=== PATIENT | female | born 1965 | race Caucasian/White ===

== ENCOUNTER 2019-08-23 12:19 | Outpatient (CLI) | payer BC, SELFPAY ==
--- NOTE | ~2019-08-23 | XR_ITS ---
EXAMINATION: XR chest 2V EXAM DATE: 08/23/2019 13:07 INDICATION: Chest pain. TECHNIQUE: Frontal and lateral projections of the chest obtained and reviewed. There is no prior ana dy for comparison. FINDINGS: The lungs are clear. There are no pleural effusions. The cardiomediastinal silhouette is within normal limits. There is no pneumothorax suspected. The bones and soft tissues are unremarkab le. IMPRESSION: Normal chest x-ray exam. Reviewed, dictated and finalized at location A. IMPRESSION: Normal chest x-ray exam.
== END 2019-08-23 12:20 | disposition home or self-care (01) ==
LOC: ANHIMG 12:27
PROVIDERS: PCP Family Medicine; Visit Provider Physician Assistant Medical
DX: R07.9 Chest pain, unspecified (principal)
CPT/HCPCS: 71046

== ENCOUNTER 2019-11-11 12:57 | Outpatient (CLI) | payer BC, SELFPAY ==
--- NOTE | ~2019-11-11 | MMUS_ITS ---
EXAMINATION: MM diagnostic [place] BI w adilia, US breast BI complete HISTORY: Left breast lump TECHNIQUE: ML, MLO and cc 3-D tomosynthesis images of both breasts were performed and synthetic 2-D i mages were generated. CAD analysis was submitted and interpreted. High resolution complete bilateral breast ultrasound was performed. COMPARISON: 07/24/2016 bilateral digital screening mammogram 07/29/2016 bilateral complete breast ultrasound BREAST PARENCHYMAL COMPOSITION: The breasts are extremely dense, which lowers the sensitivity of mamm ography. FINDINGS: MAMMOGRAPHIC FINDINGS: Multiple bilateral circumscribed breast masses of variable size are noted, some with halo sign, consi stent with bilateral breast cysts. Multiple masses and the dense stroma may obscure a significant mas s. For this reason, bilateral breast ultrasound examination was performed. Minimal benign calcification. No architectural distortion, skin thickening or retraction of either br east is evident. ULTRASOUND: Sonographic evaluation of both complete breasts reveal numerous scattered simple and complicated cyst s, with circumscribed margins, no suspicious internal vascularity or posterior shadowing. The larges t measure up to 2.6 cm on the left at 12:00 5 cm from nipple. No suspicious mass or shadowing of either breast is evident. IMPRESSION: 1. Multiple bilateral breast cysts. No mammographic or sonographic evidence of malignancy 2. Routine mammographic screening follow-up is recommended. BI-RADS Category 2: Benign finding(s). Reviewed, dictated and finalized at location A. IMPRESSION: 1. Multiple bilateral breast cysts. No mammographic or sonographic evidence of malignancy 2. Routine mammographic screening follow-up is recommended. BI-RADS Category 2: Benign finding(s).
== END 2019-11-11 12:58 | disposition home or self-care (01) ==
LOC: ANHIMG 12:58
PROVIDERS: PCP Family Medicine; Visit Provider Nurse Practitioner Family
DX: N60.02 Solitary cyst of left breast (principal); N60.01 Solitary cyst of right breast
CPT/HCPCS: 76641; 77062; 77066; G0279

== ENCOUNTER 2020-02-15 12:44 | Outpatient (CLI) | payer BC, SELFPAY ==
[2020-02-15 19:20] LABS: SARS-CoV-2 RNA PCR Negative
== END 2020-02-15 12:45 | disposition home or self-care (01) ==
LOC: ANHCOVIDDT 03-02 12:44
PROVIDERS: PCP Family Medicine; Visit Provider Internal Medicine Gastroenterology
DX: Z01.812 Encounter for preprocedural laboratory examination (principal); Z11.59 Encounter for screening for other viral diseases
CPT/HCPCS: 87635; C9803; U0003

== ENCOUNTER 2020-02-17 02:16 | Day surgery (SDC) | payer BC, SELFPAY ==
[2020-02-08 13:54] VITALS: BMI 25.0
--- NOTE | 2020-02-17 11:18 | WPDANESEPPF ---
Anes - Initial Pre Proc Eval Procedure: Operation Date: 02/17/20 13:15 Proposed Procedures p Screening Colonoscopy - Víctor Phillips MD Date/Time: 02/17/20 11:18 Surgeon: Víctor Phillips MD Pre Op Diagnosis: Neoplasm Screening Patient Data Age: 54 Gender: F Height: 1.63 m Weight: 66 kg Allergies Allergy/AdvReac Type Severity Reaction Status Date / Time propoxyphene Allergy Severe Unknown Verified 02/17/20 12:06 Penicillins Allergy Intermediate Unknown Verified 02/17/20 12:06 Home Medications Medication Instructions Recorded Confirmed Type meloxicam 15 mg tablet 15 mg PO DAILY #30 tablet 12/12/19 02/17/20 Rx escitalopram oxalate 10 mg tablet 10 mg PO DAILY #30 tablet 12/26/19 02/17/20 Rx peg 3350-electrolytes 236 240 ml PO Q10M #4000 ml 02/03/20 Rx gram-22.74 gram-6.74 gram-5.86 gram solution Daily Multi-Vitamin 1 tab-cap PO DAILY 02/08/20 02/17/20 History Neuriva 1 cap PO DAILY 02/08/20 02/17/20 History famotidine 40 mg tablet 40 mg PO DAILY #30 tablet 02/08/20 02/17/20 Rx ferrous sulfate 324 mg PO DAILY 02/08/20 02/17/20 History Patient hx anesthesia problems: none Family hx anesthesia problems: none PMFSH Social History Social History Smoking packs per day: 1 Smoking cigarettes per day: 20.0 Years smoked: 20 Smoking pack-years: 20.00 Smoking status: Former smoker Tobacco type: cigarettes Second hand tobacco smoke exposure: No Alcohol intake: current Drinks per week: 24 Substance use: current Substance use type: marijuana Other substance usage details: DAILY Living arrangements: with family Spiritual care concerns: No Anes - Eval Final PreProcedure Day of Procedure 02/17/20 11:18 Patient weight: normal Heart: regular rate and rhythm Lungs: clear to auscultation and normal air movement Airway: Mallampati scale class II Neurological: alert and oriented Last oral intake: >/= 8 hours ASA classification: II Emergent: no Anesthetic plan: proceed Anesthesia type and monitoring: general GIVS Informed Consent: The patient's anesthetic plan and its attendant risks and benefits were discussed with the patient/family/POA. Questions were solicited and answers provided to the satisfaction of the patient/family/POA.
[2020-02-17] MEDS: LACTATED RINGERS 1,000 ML 150 ML IV CONT (12:20)
[2020-02-17 12:21] VITALS: BP 141/100; PULSE 78; RESP 20; TEMP 36.6; O2SAT 100; BMI 24.7
--- NOTE | 2020-02-17 13:18 | PM.HPGS ---
History of Present Illness History of Present Illness Consent: Risks, benefits, and alternatives have been discussed and questions answered. Patient agrees to proceed with procedure. Chief complaint: Neoplasm Screening Narrative: Francheska Childers is a 54 year old female here for first screening colonoscopy Review of Systems Constitutional: Constitutional: Denies headache(s) and Denies weakness Eyes: Eyes: Denies blurry vision ENT: Reports Normal hearing present, Denies headache(s) and Denies neck pain Cardiovascular: Cardiovascular: Denies chest pain and Denies dyspnea Respiratory: Respiratory: Denies dyspnea Gastrointestinal: Gastrointestinal: Reports no additional gastrointestinal complaints Genitourinary: Genitourinary: Denies dysuria Musculoskeletal: Musculoskeletal: Denies neck pain Integumentary/Breasts: Skin/Breast: Denies dry skin Neurologic: Reports Normal hearing present, Denies headache(s) and Denies weakness Psychiatric: Psychiatric: Denies anxiety Endocrine: Endocrine: Denies change in body appearance Hematologic/Lymphatic: Hematologic/Lymphatic: Denies easy bleeding Allergic/Immunologic: Allergic/Immunologic: Denies urticaria [facility] Social History Social History Smoking packs per day: 1 Smoking cigarettes per day: 20.0 Years smoked: 20 Smoking pack-years: 20.00 Smoking status: Former smoker Tobacco type: cigarettes Second hand tobacco smoke exposure: No Alcohol intake: current Drinks per week: 24 Substance use: current Substance use type: marijuana Other substance usage details: DAILY Living arrangements: with family Spiritual care concerns: No Meds Home Medications and Allergies Home Medications Medication Instructions Recorded Confirmed Type meloxicam 15 mg tablet 15 mg PO DAILY #30 tablet 12/12/19 02/17/20 Rx escitalopram oxalate 10 mg tablet 10 mg PO DAILY #30 tablet 12/26/19 02/17/20 Rx peg 3350-electrolytes 236 240 ml PO Q10M #4000 ml 02/03/20 Rx gram-22.74 gram-6.74 gram-5.86 gram solution Daily Multi-Vitamin 1 tab-cap PO DAILY 02/08/20 02/17/20 History Neuriva 1 cap PO DAILY 02/08/20 02/17/20 History famotidine 40 mg tablet 40 mg PO DAILY #30 tablet 02/08/20 02/17/20 Rx ferrous sulfate 324 mg PO DAILY 02/08/20 02/17/20 History Allergies Allergy/AdvReac Type Severity Reaction Status Date / Time propoxyphene Allergy Severe Unknown Verified 02/17/20 12:06 Penicillins Allergy Intermediate Unknown Verified 02/17/20 12:06 Vital Signs Vital Signs - 24 hr 02/17/20 12:21 Temperature 97.8 F Pulse Rate 78 Respiratory Rate 20 Blood Pressure 141/100 H Pulse Oximetry 100 Exam Const: General: comfortable and no acute distress HENMT: General nose exam: Normal nares present Eyes: General: appearance normal, both eyes and all related structures Neck: Neck: no JVD Resp: Auscultation: clear to auscultation bilaterally Cardio: Rate: regular rate Rhythm: regular rhythm GI: Inspection: non-distended GI Palp: Yes Soft to palpation Skin: General skin exam: normal color Neuro: General: gait normal Speech: normal speech Extrem: General: normal to inspection Psych: Mental Status: mental status grossly normal Assessment and Plan Assessment and plan (1) Colon cancer screening: Code(s): Z12.11 - Encounter for screening for malignant neoplasm of colon Status: Acute Assessment and Plan: proceed with colonoscopy (2) GERD (gastroesophageal reflux disease): Qualifiers: Esophagitis presence: esophagitis presence not specified Qualified Code(s): K21.9 - Gastro-esophageal reflux disease without esophagitis Code(s): K21.9 - Gastro-esophageal reflux disease without esophagitis Status: Acute
[2020-02-17 13:36] VITALS: BP 143/68; PULSE 74; RESP 18; O2SAT 100
[2020-02-17 13:46] VITALS: BP 134/69; PULSE 60; RESP 18; O2SAT 100
[2020-02-17 13:56] VITALS: BP 139/80; PULSE 78; RESP 20; O2SAT 100
== END 2020-02-17 14:06 | disposition home or self-care (01) ==
PROVIDERS: PCP Family Medicine; Visit Provider Internal Medicine Gastroenterology
PROC: 0DJD8ZZ Inspection of Lower Intestinal Tract, Via Natural or Artificial Opening Endoscopic (ICD-10-PCS; CPT 45378; principal; 2020-02-17 13:15)
DX: Z12.11 Encounter for screening for malignant neoplasm of colon (principal); K57.30 Diverticulosis of large intestine without perforation or abscess without bleeding; K64.8 Other hemorrhoids; K21.9 Gastro-esophageal reflux disease without esophagitis; F12.90 Cannabis use, unspecified, uncomplicated; Z87.891 Personal history of nicotine dependence
CPT/HCPCS: 45378; J2704; J7120

== ENCOUNTER 2020-04-04 13:24 | Outpatient (CLI) | payer BC, SELFPAY ==
--- NOTE | ~2020-04-04 | MR_ITS ---
EXAMINATION: MR brain/brain stem wo/w con DATE: 04/04/2020 14:37 INDICATION: Headache. Abnormal gait. TECHNIQUE: Magnetic resonance imaging (MRI) of the brain and brainstem was performed without and with 12 mL MultiHance intravenous contrast. Sequences included sagittal and axial T1-weighted FSE, axial diffusion-weighted FS EPI, axial T2*-weighted GRE, axial T2-weighted FLAIR Propeller, and axial T2-we ighted Propeller. Postcontrast sequences included axial and coronal T1-weighted FSE. Apparent diffusi on coefficient (ADC) maps were created. COMPARISON: None. FINDINGS: There are scattered areas of nonspecific increased T2-weighted signal intensity in the cere bral white matter, which is within normal limits for the patient's age. There is no intracranial hemo rrhage, acute infarction, or abnormal intracranial mass lesion. The ventricles are normal in size. Th e paranasal sinuses are clear. The orbits are normal. The mastoid air cells are normal. IMPRESSION: 1. Normal aging brain. Reviewed, dictated and finalized at location A. IMPRESSION: 1. Normal aging brain.
== END 2020-04-04 13:25 | disposition home or self-care (01) ==
PROVIDERS: PCP Family Medicine; Visit Provider Nurse Practitioner Family
DX: R26.89 Other abnormalities of gait and mobility (principal); R41.3 Other amnesia; R51.9 Headache, unspecified
CPT/HCPCS: 70553; A9577

== ENCOUNTER 2020-05-28 09:37 | Outpatient (NON) | payer BC, SELFPAY ==
[2020-05-28 22:01] LABS: SARS-CoV-2 RNA PCR Positive
== END 2020-05-28 09:38 ==
LOC: ANHCOVIDDT 09:38
PROVIDERS: PCP Family Medicine; Visit Provider Nurse Practitioner Family
DX: U07.1 COVID-19 (principal)
CPT/HCPCS: 87635; C9803; U0003

== ENCOUNTER 2020-11-26 09:24 | Emergency (ER) | payer BC, SELFPAY ==
--- NOTE | ~2020-11-26 | XR_ITS ---
EXAMINATION: XR chest 2V DATE: 11/26/2020 10:24 INDICATION: Shortness of breath and dizziness TECHNIQUE: Frontal and lateral views of the chest are obtained COMPARISON: 08/23/2019 FINDINGS: The lungs are free of acute opacities. There is no pleural effusion or pneumothorax. The ca rdiomediastinal silhouette is normal. There is mild thoracic spondylosis. IMPRESSION: 1. No acute cardiopulmonary abnormality. Reviewed, dictated and finalized at location A.
--- NOTE | 2020-11-26 09:50 | ECG_ITS ---
Measurements Intervals [place] Rate: 71 P: 29 UT: 143 QRS: 52 QRSD: 82 T: 43 QT: 370 QTc: 403 Interpretive Statements SINUS RHYTHM WITH SINUS ARRHYTHMIA BASELINE ARTIFACT- I, II, III, AVR, AVL, AVF NORMAL ECG Electronically Signed On 11-26-2020 10:06:56 CDT by Quang Shepard D.O.
[2020-11-26 09:52] VITALS: BP 170/82; PULSE 79; RESP 18; TEMP 36.4; O2SAT 99
[2020-11-26 10:13] LABS: Basophils Absolute Auto 0.1 K/mm3 (0.0-0.1); Basophils Percent Auto 0.7 % (0.2-1.2); Eosinophils Absolute Auto 0.1 K/mm3 (0-0.3); Eosinophils Percent Auto 1.2 % (0-4.4); Hemoglobin 14.8 g/dL (12.0-15.0); Immature Granulocyte Absolute 0.03 K/mm3 (0.00-0.031); Immature Granulocyte Percent A 0.3 % (0-0.5); Lymphocytes Absolute Auto 1.89 K/mm3 (0.9-3.2); Lymphocytes Percent Auto 19.7 % (18.3-44.2); Mean Corpuscular HGB Conc 33.6 g/dl (32-36); Mean Corpuscular Hemoglobin 32.2 pg (26-34); Mean Corpuscular Volume 95.7 fl (80-100); Mean Platelet Volume 9.2 fl (7.4-10.4); Monocytes Absolute Auto 0.7 K/mm3 (0.1-0.6); Neutrophils Absolute Auto 6.8 K/mm3 (1.3-6.7); Neutrophils Percent Auto 71.1 % (45.5-73.1); Platelet Count Result 239 k/mm3 (150-375); Red Cell Distribution Width 12.1 % (11.5-14.5); White Blood Count 9.6 K/mm3 (4.5-10.0)
[2020-11-26 10:23] LABS: Alanine Aminotransferase 15 U/L (4-35); Albumin Level 4.5 g/dL (3.5-5.1); Alkaline Phosphatase 51 U/L (38-126); Anion Gap 7 mmol/L (8-16); Aspartate Amino Transferase 24 U/L (14-36); Bilirubin,Total 0.5 mg/dL (0.2-1.3); Blood Urea Nitrogen 11 mg/dL (7-17); Calcium 9.7 mg/dL (8.4-10.2); Carbon Dioxide 28 mmol/L (22-30); Chloride 104 mmol/L (98-107); Estimated CRCL calculation 80 ml/min; Estimated Glomerular Filt Rate > 60; Glucose 110 mg/dL (65-105); Potassium 3.8 mmol/L (3.4-5.0); Sodium 139 mmol/L (137-145)
[2020-11-26 11:02] VITALS: BP 152/104; PULSE 76; RESP 11; O2SAT 99
--- NOTE | 2020-11-26 11:25 | ED.DIZZY ---
HPI - Dizziness General Chief Complaint: Dizziness Stated Complaint: dizziness and shortness of breath Time Seen by Provider: 11/26/20 11:11 History of Present Illness HPI Narrative: She reports dizziness for a month. Worse over the past 24 hours. Feels like spinning. Associated with mild nausea. She reports that she has had vertigo before, but this is different. No tinitus, ear pain, chest pain, palpitations. Related Data Home Medications Medication Instructions Recorded Confirmed Daily Multi-Vitamin 1 tab-cap PO DAILY 02/08/20 10/23/20 Neuriva 1 cap PO DAILY 02/08/20 10/23/20 Allergies Allergy/AdvReac Type Severity Reaction Status Date / Time propoxyphene Allergy Severe Unknown Verified 11/26/20 10:58 Penicillins Allergy Intermediate Unknown Verified 11/26/20 10:58 Review of Systems Review of Systems: All systems reviewed & are unremarkable except as noted in HPI and below Constitutional: Constitutional: Denies chills, Denies fever(s) and Reports weakness Eyes: Eyes: Reports no additional eye complaints ENT: Reports dizziness Cardiovascular: Cardiovascular: Denies chest pain Respiratory: Respiratory: Denies dyspnea Gastrointestinal: Gastrointestinal: Denies abdominal pain, Reports nausea and Denies vomiting Genitourinary: Genitourinary: Reports no additional female genitourinary complaints Musculoskeletal: Musculoskeletal: Denies back pain Neurologic: Denies confusion, Denies numbness and Denies weakness [facility] Past Medical History Medical History Anxiety and depression BMI 23.0-23.9, adult BMI 24.0-24.9, adult Colon cancer screening GERD (gastroesophageal reflux disease) Lumbago of lumbar region with sciatica Family History Family History Grandparent Hypertension Father Acute myocardial infarction Cerebrovascular accident Mother No problems noted. Sibling No problems noted. 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 Gender identity (if verbalized by the patient): Female Spiritual care concerns: No Exam Const: General: healthy appearing, no acute distress and alert Orientation/consciousness: patient oriented x3 HENMT: Head: normal to inspection Ears: TM's normal bilaterally Eyes: Conjunctivae: conjunctivae normal Pupils: Equal, round and reactive pupils present EOM: EOMs intact bilaterally Neck: Neck: normal visual inspection and no lymphadenopathy Chest: Chest palpation & inspection: no tenderness Resp: Effort & Inspection: normal respiratory effort Auscultation: clear to auscultation bilaterally, no rales, no rhonchi and no wheezes Cardio: Jugular venous distension: no JVD Rate: regular rate Rhythm: regular rhythm Heart sounds: no murmurs GI: Inspection: non-distended GI Palp: Yes Soft to palpation and No Tenderness to palpation present (GI) Skin: General skin exam: normal color Neuro: General: patient oriented x3, moves all extremities and CN's II-XI intact bilaterally Cranial nerves: Yes Nystagmus present (minimal) Speech: normal speech Gait exam (Neuro): Normal gait present Extrem: General: no edema Psych: Appearance: well kempt Affect: normal affect Course Vital Signs Vital signs: Vital Signs Temperature 36.4 C 11/26/20 09:52 Pulse Rate 79 11/26/20 09:52 Respiratory Rate 18 11/26/20 09:52 Blood Pressure 170/82 H 11/07
[2020-11-26] MEDS: MECLIZINE HCL 25 MG TABLET PO (11:36)
[2020-11-26] MEDS: SODIUM CHLORIDE 0.9% IV 1,000 ML 999 ML IV CONT (11:37)
[2020-11-26] MEDS: ALBUTEROL SULFATE NEB 2.5 MG/0.5 ML INH 5 MG INHALATION (11:38)
[2020-11-26 11:40] VITALS: PULSE 77; RESP 20
[2020-11-26 11:48] VITALS: PULSE 77; RESP 20
[2020-11-26 12:43] VITALS: BP 167/86; PULSE 86; RESP 27; O2SAT 100
[2020-11-26 13:11] VITALS: BP 113/94; PULSE 86; RESP 17; O2SAT 99
== END 2020-11-26 13:14 | disposition home or self-care (01) ==
PROVIDERS: Emergency Provider Emergency Medicine; PCP Family Medicine
DX: R42 Dizziness and giddiness (principal); R06.2 Wheezing; K21.9 Gastro-esophageal reflux disease without esophagitis; Z87.891 Personal history of nicotine dependence
CPT/HCPCS: 36415; 71046; 80053; 85025; 93005; 94640; 96360; 99283; A9270; J7030

== ENCOUNTER 2020-12-18 15:32 | Outpatient (CLI) | payer BC, SELFPAY ==
--- NOTE | ~2020-12-18 | MM_ITS ---
EXAMINATION: MM screening [place] BI w adilia HISTORY: Screening mammogram TECHNIQUE: Craniocaudal and mediolateral oblique 3-D tomosynthesis images were obtained and synthetic 2-D images were generated. CAD analysis was submitted and interpreted. COMPARISON: 11/11/2019, 07/24/2016 BREAST PARENCHYMAL COMPOSITION: The breasts are extremely dense, which lowers the sensitivity of mamm ography. FINDINGS: Obscured, waxing and waning bilateral breast masses are consistent with cysts. There is no evidence of suspicious mass, calcification, or architectural distortion to suggest malignancy in eith er breast. There has been no suspicious interval change. IMPRESSION: 1. No mammographic evidence of malignancy. 2. Recommend routine screening mammography in one year. BI-RADS Category 2: Benign finding(s). Reviewed, dictated and finalized at location A.
== END 2020-12-18 15:33 | disposition home or self-care (01) ==
LOC: ANHIMG 15:33
PROVIDERS: PCP Family Medicine; Visit Provider Nurse Practitioner Family
DX: Z12.31 Encounter for screening mammogram for malignant neoplasm of breast (principal)
CPT/HCPCS: 77063; 77067

== ENCOUNTER 2021-12-06 08:41 | Emergency (ER) | payer OTHER, SELFPAY ==
--- NOTE | ~2021-12-06 | CT_ITS ---
EXAMINATION: CT cervical spine wo con DATE: 12/06/2021 09:31 INDICATION: Neck pain TECHNIQUE: Computed tomography (CT) of the cervical spine was performed without intravenous contrast. The dose-length product was 233 mGy-cm. Automated exposure control and iterative reconstruction tech nique were employed. COMPARISON: None FINDINGS: There is straightening of cervical lordosis. There is degenerative disc disease at C5-6 wit h prominent marginal osteophytes. Craniovertebral junction within normal limits. Odontoid process is normal. There are uncinate degenerative changes at C5-6. Lung apices are normal. There is emphysema. No paraspinal soft tissue abnormality. IMPRESSION: 1. No acute fracture. Reviewed, dictated and finalized at location A. IMPRESSION: 1. No acute fracture.
--- NOTE | ~2021-12-06 | CT_ITS ---
EXAMINATION: CT brain wo con DATE: 12/06/2021 09:31 INDICATION: Status post fall. Trauma to the back of the head. Laceration. TECHNIQUE: Computed tomography (CT) of the head was performed without intravenous contrast. The dose- length product was 605.33 mGy-cm. Automated exposure control and iterative reconstruction technique w ere employed. COMPARISON: None FINDINGS: No acute intracranial hemorrhage, infarction, mass or mass effect. No ventriculomegaly or m idline shift. Basilar cisterns are patent. Paranasal sinuses and mastoids are pneumatized. No depress ed skull fractures. Mild generalized brain parenchymal volume loss. Midline sagittal images are unrem arkable. IMPRESSION: 1. No acute intracranial abnormality. Reviewed, dictated and finalized at location A.
[2021-12-06 08:45] VITALS: BP 193/110; PULSE 95; RESP 20; TEMP 37.6; O2SAT 98
--- NOTE | 2021-12-06 08:49 | ECG_ITS ---
Measurements Intervals [place] Rate: 91 P: 21 MS: 142 QRS: 25 QRSD: 81 T: 39 QT: 356 QTc: 438 Interpretive Statements SINUS RHYTHM BORDERLINE R WAVE PROGRESSION, ANTERIOR LEADS BASELINE WANDER- II, III, AVR, AVL, AVF, V3 BORDERLINE ECG Electronically Signed On 12-06-2021 9:05:42 CDT by Quang Shepard D.O.
--- NOTE | 2021-12-06 09:20 | ED.FALL ---
HPI - Fall General Chief Complaint: Fall Stated Complaint: fall, hit head Time Seen by Provider: 12/06/21 09:14 History of Present Illness HPI Narrative: 56-year-old female presents to the emergency room for evaluation of a head injury. Patient states last night she lost her footing and fell down 7 stairs. Reports suffering a head injury, with laceration to back of her head. Patient denies LOC or altered mental status. Morning when she woke up she became dizzy and nauseated. States her significant other placed liquid glue over the laceration to stop the bleeding. Patient denies any other injuries Related Data Home Medications Medication Instructions Recorded Confirmed Saccharomyces boulardii 250 mg 5,000 mmu cells PO DAILY 12/02/21 capsule (Daily Probiotic (S. boulardii)) multivitamin 1 tablet PO DAILY 12/02/21 Allergies Allergy/AdvReac Type Severity Reaction Status Date / Time propoxyphene Allergy Severe Unknown Verified 12/02/21 12:42 Penicillins Allergy Intermediate Unknown Verified 12/02/21 12:42 Review of Systems Review of Systems: CONSTITUTIONAL: Denies fever, chills, or sweats. EYES: Denies visual changes, redness, or discharge. ENT: Denies rhinorrhea, congestion, sore throat, or otalgia. CARDIOVASCULAR: Denies chest pain, palpitations, or edema. RESPIRATORY: Denies cough or dyspnea. GASTROINTESTINAL: Reports nausea GENITOURINARY: Denies dysuria or hematuria. SKIN: Reports scalp laceration MUSCULOSKELETAL: Denies back pain, joint pain, or myalgia. NEUROLOGIC: Reports headache, dizziness PSYCHIATRIC: Denies anxiety or depression. [facility] Past Medical History Medical History Anxiety and depression BMI 23.0-23.9, adult BMI 24.0-24.9, adult BPV (benign positional vertigo) Colon cancer screening GERD (gastroesophageal reflux disease) Lumbago of lumbar region with sciatica Mixed hyperlipidemia Family History Family History Grandparent Hypertension Father Acute myocardial infarction Cerebrovascular accident Mother No problems noted. Sibling No problems noted. 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 HEAD: Normocephalic, atraumatic. EYES: Conjunctivae normal, PERRLA and EOMI. CHEST: Clear to auscultation. No respiratory distress. No wheezes rales or rhonchi. No tenderness. HEART: Regular rate and rhythm. No murmur heard. Normal peripheral pulses. BACK: No CVA tenderness; No cervical/thoracic/lumbar tenderness, step-offs, or bony abnormality; FROM EXTREMITIES: Normal range of motion. No edema. No clubbing or cyanosis SKIN: Laceration to the left posterior lateral laceration with overlying skin adhesive. Unable to open up the laceration NEURO: No focal deficits. Alert and oriented x3. MAEW. CN's II-XI intact bilaterally, normal gait PSYCH: Cooperative. Normal mood and affect. Course Vital Signs Vital signs: Vital Signs Temperature 37.6 C H 12/06/21 08:45 Pulse Rate 95 12/06/21 08:45 Respiratory Rate 20 12/06/21 08:45 Blood Pressure 193/110 H 12/06/21 08:45 Pulse Oximetry 98 12/06/21 08:45 Oxygen Delivery Room A
[2021-12-06] MEDS: ONDANSETRON INJ 4 MG/2 ML VIAL IV PUSH (09:21)
--- NOTE | 2021-12-06 09:24 | PC.NURSE ---
Patient to CT
[2021-12-06 10:48] VITALS: BP 128/110; PULSE 83; RESP 18; TEMP 36.8; O2SAT 98
== END 2021-12-06 10:54 | disposition home or self-care (01) ==
PROVIDERS: Emergency Provider Nurse Practitioner Family; PCP Family Medicine
DX: S09.90XA Unspecified injury of head, initial encounter (principal); R11.0 Nausea; E78.2 Mixed hyperlipidemia; Z87.891 Personal history of nicotine dependence; W10.9XXA Fall (on) (from) unspecified stairs and steps, initial encounter
CPT/HCPCS: 70450; 72125; 93005; 96374; 99284; J2405

== ENCOUNTER 2022-02-17 08:48 | Outpatient (CLI) | payer OTHER, SELFPAY ==
--- NOTE | ~2022-02-17 | MM_ITS ---
EXAMINATION: MM screening [place] BI w adilia HISTORY: Screening mammogram TECHNIQUE: Craniocaudal and mediolateral oblique 3-D tomosynthesis images were obtained and synthetic 2-D images were generated. Bilateral rotated lateral CC views. CAD analysis was submitted and interp reted. COMPARISON: 12/18/2020 bilateral screening mammogram 11/11/2019 bilateral diagnostic mammography and bilateral complete breast ultrasound 08/15/2016 Limited right breast ultrasound 07/29/2016 bilateral complete breast ultrasound bilateral screening mammogram BREAST PARENCHYMAL COMPOSITION: The breasts are extremely dense, which lowers the sensitivity of mamm ography. FINDINGS: There is waxing and waning of bilateral circumscribed opacities since , consisten t with fibrocystic breasts. Multiple up to 2.5 and 4.2 cm circumscribed opacities with halo sign, con sistent with benign cysts, are noted in the left breast. There is no evidence of suspicious mass, calcification, or architectural distortion to suggest malig natasha in either breast. There has been no suspicious interval change. IMPRESSION: 1. No mammographic evidence of malignancy. 2. Recommend routine screening mammography in one year. BI-RADS Category 2: Benign finding(s). Reviewed, dictated and finalized at location A.
== END 2022-02-17 08:49 | disposition home or self-care (01) ==
PROVIDERS: PCP Family Medicine; Visit Provider Obstetrics & Gynecology
DX: Z12.31 Encounter for screening mammogram for malignant neoplasm of breast (principal)
CPT/HCPCS: 77063; 77067

== ENCOUNTER 2022-02-18 09:54 | Outpatient (CLI) | payer OTHER, SELFPAY ==
--- NOTE | 2022-02-18 10:16 | ECG_ITS ---
Measurements Intervals [place] Rate: 80 P: 69 TX: 149 QRS: 49 QRSD: 83 T: 40 QT: 366 QTc: 423 Interpretive Statements SINUS RHYTHM BASELINE ARTIFACT- I, III, AVR, AVL, AVF NORMAL ECG COMPARED TO ECG 12/06/2021 08:53:06 NO SIGNIFICANT CHANGES Electronically Signed On 02-18-2022 12:06:20 CDT by Quang Shepard D.O.
[2022-02-18 10:40] LABS: Basophils Absolute Auto 0.1 K/mm3 (0.0-0.1); Basophils Percent Auto 0.9 % (0.2-1.2); Eosinophils Absolute Auto 0.2 K/mm3 (0-0.3); Eosinophils Percent Auto 2.7 % (0-4.4); Hematocrit 41.4 % (37.0-47.0); Hemoglobin 13.2 g/dL (12.0-15.0); Immature Granulocyte Absolute 0.03 K/mm3 (0.00-0.031); Immature Granulocyte Percent A 0.3 % (0-0.5); Lymphocytes Absolute Auto 1.51 K/mm3 (0.9-3.2); Lymphocytes Percent Auto 16.7 % (18.3-44.2); Mean Corpuscular HGB Conc 31.9 g/dl (32-36); Mean Corpuscular Hemoglobin 29.9 pg (26-34); Mean Corpuscular Volume 93.9 fl (80-100); Mean Platelet Volume 9.6 fl (7.4-10.4); Monocytes Absolute Auto 0.9 K/mm3 (0.1-0.6); Neutrophils Absolute Auto 6.3 K/mm3 (1.3-6.7); Neutrophils Percent Auto 69.4 % (45.5-73.1); Platelet Count Result 263 k/mm3 (150-375); Red Blood Count 4.41 M/mm3 (4.2-5.4); Red Cell Distribution Width 13.5 % (11.5-14.5)
== END 2022-02-18 09:55 | disposition home or self-care (01) ==
PROVIDERS: PCP Family Medicine; Visit Provider Obstetrics & Gynecology
DX: N85.2 Hypertrophy of uterus (principal); Z01.818 Encounter for other preprocedural examination; Z87.891 Personal history of nicotine dependence
CPT/HCPCS: 36415; 85025; 86850; 86900; 86901; 93005

== ENCOUNTER 2022-02-21 00:28 | Day surgery (SDC) | payer OTHER, SELFPAY ==
[2022-02-17 10:53] VITALS: BMI 24.5
--- NOTE | 2022-02-17 11:02 | PC.NURSE ---
Report to the Outpatient Waiting Room, entrance under the green pavilion located off [facility], at time __09:30AM___ on date __02-21-22__. OR Time: ___11:30AM__. Time changes happen often and if your time is changed the preop area will call you the afternoon before. - You and your visitor will be asked to self-screen and do not enter if you have any COVID symptoms. - Only one visitor and NO children visitors are allowed at this time. - The patient visitor is requested to leave or wait in car when not with patient due to restrictions. - A mask is required within the hospital. Patients may have clear liquids (water, carbonated beverages, clear teas, apple juice) until 3 hours prior to surgery with a maximum of 20 ounces. - No food from midnight until time of surgery - NOTHING TO DRINK AFTER 08:30AM Take the following medications with a SIP of water the morning of surgery: ___LEXAPRO____ Medications to discontinue per physician MULTIVITAMIN Date to take last ykvh 3-20-19 Please no make-up, nail malay, hairspray, perfume, deodorant, or body powder the day of surgery. No jewelry (including any body piercings) or valuables the day of surgery, leave them at home. Please take a shower or bath the night before, or the morning of, surgery with an antibacterial soap. Wear comfortable, loose fitting clothing. Children are encouraged to wear pajamas. - Jewelry must be removed prior to entering the operating room. Rings and piercings that are not removed may be cut off. - The hospital will not accept responsibility for valuables. - Please leave all valuables, including medications, at home the day of surgery. If you are going home after surgery, a licensed power screwdriver operator must drive you home. - NO public transportation without another adult. - We recommend that an adult stay with you for 24 hours following discharge. - We also recommend that you do not drive, make important decision, drink alcoholic beverages, or take any drugs that were not prescribed by your health care provider for at least 24 hours after your discharge time. Follow any additional instructions given to you from your surgeon. If you or anyone in your household have experienced Covid symptoms in the past week, please notify your surgeon or the nurse liaison at the phone number below for possible testing. Telephone instructions given to __PATIENT__and asked if any additional questions and then verbalized understanding. Patient advised to call surgeon office or pre surgery nurse liaison [phone] if any additional questions.
--- NOTE | 2022-02-18 12:24 | PM.IMHP ---
H&P: HPI History of Present Illness Date/Time: 02/18/22 12:24 Chief Complaint: Enlarged uterus/pelvic pain/uterine fibroids/heavy bleeding Narrative: This is a 56-year-old female admitted for robotic hysterectomy and bilateral salpingo-oophorectomy secondary to enlarged uterus with fibroids pelvic pain and bleeding refractory to medical therapy. Risks and benefits of the procedure reviewed including but not exclusive of , aspiration pneumonia, bleeding, transfusion, perforation injury to bowel, bladder, ureters, or other internal organs with need for laparotomy. She received the ACOG handout entitled hysterectomy as well as de [place] handout. She had all questions answered and asked to proceed PMFSH Past Medical History Medical History Anxiety and depression BMI 23.0-23.9, adult BMI 24.0-24.9, adult BPV (benign positional vertigo) Colon cancer screening GERD (gastroesophageal reflux disease) Lumbago of lumbar region with sciatica Mixed hyperlipidemia Family History Family History Grandparent Hypertension Father Acute myocardial infarction Cerebrovascular accident Mother No problems noted. Sibling No problems noted. Social History Social History Smoking packs per day: 1 Smoking cigarettes per day: 20.0 Years smoked: 20 Smoking pack-years: 20.00 Smoking status: Former smoker Tobacco type: cigarettes Second hand tobacco smoke exposure: No Smoking end date: 02/06/09 Additional smoking assessment comments: VAPES MARIJUANA Alcohol intake: current Drinks per week: 24 Alcohol use details: DAILY BEER Substance use: current Substance use type: marijuana Other substance usage details: MEDICAL MARIJUANA Last use: 02-16-22 Additional occupation/education comments: spanish teacher Gender identity (if verbalized by the patient): Female Spiritual care concerns: No Meds Home Medications and Allergies Home Medications Medication Instructions Recorded Confirmed Type escitalopram oxalate 5 mg tablet See Rx Instructions .Route 11/25/21 02/17/22 Rx .COMPLEX #90 tabs pantoprazole 20 mg tablet,delayed 20 mg PO QAM #30 tabs 11/25/21 02/17/22 Rx release multivitamin 1 tablet PO DAILY 12/02/21 02/17/22 History estradiol-norethindrone acet 0.5 1 tablet PO DAILY 01/21/22 02/17/22 History mg-0.1 mg tablet ondansetron 4 mg disintegrating 4 mg PO Q8H PRN nausea and 01/21/22 02/17/22 Rx tablet vomiting #30 tabs triamcinolone acetonide 0.1 % 1 applic topical BID #30 grams 01/21/22 02/17/22 Rx topical cream Allergies Allergy/AdvReac Type Severity Reaction Status Date / Time propoxyphene Allergy Severe Unknown Verified 02/17/22 10:46 mold Allergy Intermediate Difficulty Verified 02/17/22 10:47 Breathing Penicillins Allergy Unknown Unknown Verified 02/17/22 10:46 Exam Const: General: cooperative, healthy appearing and comfortable Nutritional Appearance: average body habitus and well nourished Orientation/consciousness: oriented to person, oriented to place and oriented to time Resp: Effort & Inspection: normal respiratory effort Cardio: Rate: regular rate Rhythm: regular rhythm Heart sounds: S1 normal heart sound present and S2 normal heart sound present GI: Inspection: normal to inspection : External Female Exam: normal external appearance Speculum Exam - Vagina: normal appearance of the vagina and vaginal bleeding Speculum Exam - Cervix: normal appearance of the cervix and Cervical os closed Bimanual exam- vagina & uterus: enlarged Bimanual Exam- Adnexa, other: normal adnexae Assessment and Plan Assessment and plan (1) Enlarged uterus: Code(s): N85.2 - Hypertrophy of uterus Status: Acute (2) Pelvic pain: Code(s)
[2022-02-21] VITALS (9 sets, daily range): BP systolic 113–166; BP diastolic 66–116; PULSE 90–114; RESP 16–23; TEMP 36.1–37.2; O2SAT 96–100; BMI 24.5
--- NOTE | 2022-02-21 06:46 | WPDHPUPDATE1 ---
History and Physical Update Update Date/Time: 02/21/22 06:46 History and Physical has been reviewed, including an updated exam of the patient. There are NO changes in the patient's condition. Risks, benefits, and alternatives have been discussed and questions answered. Patient agrees to proceed with procedure.
[2022-02-21] MEDS: LACTATED RINGERS 1,000 ML 30 ML IV CONT ×2 (10:10→13:56)
[2022-02-21] MEDS: ACETAMINOPHEN 500 MG TABLET 1000 MG PO (10:16)
[2022-02-21] MEDS: KETOROLAC 15 MG/ML VIAL (*BKC) IV PUSH (10:16)
--- NOTE | 2022-02-21 10:24 | WPDANESEPPF ---
Anes - Initial Pre Proc Eval Procedure: Operation Date: 02/21/22 11:30 Proposed Procedures p Robotic Assisted Total Vaginal Hysterectomy with Bilateral Salpingo-Oophorectomy - Edwin Cary MD Date/Time: 02/21/22 10:24 Surgeon: Edwin Cary MD Pre Op Diagnosis: Enlarged Uterus, Pelvic Pain,Irg Bleed, Fibroids Patient Data Age: 56 Gender: F Height: 1.63 m Weight: 64.8 kg Allergies Allergy/AdvReac Type Severity Reaction Status Date / Time propoxyphene Allergy Severe Unknown Verified 02/21/22 09:54 mold Allergy Intermediate Difficulty Verified 02/21/22 09:54 Breathing Penicillins Allergy Unknown Unknown Verified 02/21/22 09:54 Home Medications Medication Instructions Recorded Confirmed Type escitalopram oxalate 5 mg tablet See Rx Instructions .Route 11/25/21 02/17/22 Rx .COMPLEX #90 tabs pantoprazole 20 mg tablet,delayed 20 mg PO QAM #30 tabs 11/25/21 02/17/22 Rx release multivitamin 1 tablet PO DAILY 12/02/21 02/21/22 History estradiol-norethindrone acet 0.5 1 tablet PO DAILY 01/21/22 02/17/22 History mg-0.1 mg tablet ondansetron 4 mg disintegrating 4 mg PO Q8H PRN nausea and 01/21/22 02/17/22 Rx tablet vomiting #30 tabs triamcinolone acetonide 0.1 % 1 applic topical BID #30 grams 01/21/22 02/17/22 Rx topical cream hydrocodone 5 mg-acetaminophen 325 1 tablet PO Q4H PRN pain #30 tabs 02/21/22 Rx mg tablet Patient hx anesthesia problems: none Family hx anesthesia problems: none Results Review: All pre-operative results and documents have been reviewed as part of the pre-operative evaluation. [facility] Past Medical History Medical History Anxiety and depression BMI 23.0-23.9, adult BMI 24.0-24.9, adult BPV (benign positional vertigo) Colon cancer screening GERD (gastroesophageal reflux disease) Lumbago of lumbar region with sciatica Mixed hyperlipidemia Surgical History Surgical History (Updated 02/21/22 @ 10:27 by Edwin West MD) History of section Family History Family History Grandparent Hypertension Father Acute myocardial infarction Cerebrovascular accident Mother No problems noted. Sibling No problems noted. Social History Social History Smoking packs per day: 1 Smoking cigarettes per day: 20.0 Years smoked: 20 Smoking pack-years: 20.00 Smoking status: Former smoker Tobacco type: cigarettes Second hand tobacco smoke exposure: No Smoking end date: 02/06/09 Additional smoking assessment comments: VAPES MARIJUANA Alcohol intake: current Drinks per week: 24 Alcohol use details: DAILY BEER Substance use: current Substance use type: marijuana Other substance usage details: MEDICAL MARIJUANA Last use: 02-16-22 Living arrangements: alone Additional occupation/education comments: ed teacher Gender identity (if verbalized by the patient): Female Spiritual care concerns: No Anes - Eval Final PreProcedure Day of Procedure 02/21/22 10:24 Patient weight: normal Heart: regular rate and rhythm Lungs: clear to auscultation Airway: Mallampati scale class II Neurological: alert and oriented Last oral intake: >/= 8 hours ASA classification: III Emergent: no Anesthetic plan: proceed Anesthesia type and monitoring: general ETT and standard monitoring Results Review: All pre-operative results and documents have been reviewed as part of the pre-operative evaluation. Informed Consent: The patient's anesthetic plan and its attendant risks and benefits were discussed with the patient/family/POA. Questions were solicited and answers provided to the satisfaction of the patient/family/POA.
[2022-02-21] MEDS: ceFAZolin 2 GM/D5W 50 ML 2 GM/50 ML BAG IVPB (12:21)
--- NOTE | 2022-02-21 13:40 | P.OP_ITS ---
Procedure Note - Detailed Date of Procedure 02/21/22 Pre-op Diagnosis Enlarged Uterus, Pelvic Pain,Irg Bleed, Fibroids Post-op Diagnosis Same Procedure Performed Robotic total vaginectomy and bilateral salpingo-oophorectomies Surgeon Edwin Cary MD Anesthesia General Indications Is a 56-year-old female with symptomatic uterine fibroids Findings Markedly enlarged fibroid uterus. Tubes status post tubal ligation. Description of Procedure Patient was prepped draped in the normal sterile fashion placed in the dorsal lithotomy position. Under excellent general trach anesthesia weighted speculum placed in posterior fornix vagina. Anterior lip of the cervix grasped with single-tooth tenaculum and the uterus sounded to 12cm. Serial dilatation with fragmented dilators performed followed by passage of the 10. CASEY and the 3. Cold cup. A 16 [place] catheter was placed in the bladder and the bladder drained of clear urine. Weighted speculum was removed the gloves were changed. A supraumbilical incision made the Veress needle passed in the abdomen. Abdomen filled with CO2 gas [id number]. The trocar advanced in the abdomen. Downside visualized no injury seen. Gas reattached the patient placed in Trendelenburg 6. The right left lateral quadrant incisions made and the 8mm trocars advanced under direct visualization assuring no injury. Right upper quadrant incision made the 8mm trocar advanced under direct visualization. The robot was de docked. Attention was turned to the youth counselor. The uterus was large and tortuous. The tubes were status post tubal ligation. The left round ligament was grasped, burned, cut. Anterior bladder flap was formed by sharply dissecting the peritoneum and reflecting the bladder caudally away from the cervix uterus the opposite round ligament which was clamped, burned, cut. Next the left infundibulopelvic structure was skeletonized to remove the ovary and tube. This was clamped, burned, cut and brought to the level of previously cut round ligame nt. Removing the right ovary and tube the infundibulopelvic structure on the right was skeletonized clamped, burned, cut and brought to the level of previously cut round ligament. Next the cardinal broad ligaments on the left were serially skeletonized hugging the cervix and uterus clamping burning cutting down the lateral edge of the uterus and cervix until the vessels could be seen on the left. These were large and tortuous and individually clamped, burned, cut. Next the cardinal broad ligaments on the right were serially skeletonized clamped, burned, cut and brought down the lateral edge of the uterus and cervix until the uterine vessels seen the right. These uterine vessels were then clamped, burned, cut. Blanching the uterus was seen in a colpotomy incision made. Cervix uterus tubes and ovaries removed through the vagina. The vagina closed with continuous running 0V lock from lateral edge to lateral edge. Hemostasis was assured the sprinkled [place] term over the raw surface area. Hemostasis was assured. The robot was undocked. The gas removed from the abdomen. The trocars removed and the incisions closed with 4-0 Monocryl glue. The patient was awakened and went to recovery in satisfactory condition. All sponge, needle, instrument counts were correct. There were no immediate complications Estimated Blood Loss 25 Drains No Packing No Pathology Yes Complications No immediate complications Condition Stable Disposition PACU
[2022-02-21] MEDS: fentaNYL CITRATE INJ (*CRX) 100 MCG/2 ML VIAL 25 MCG IV PUSH ×3 (14:04→14:30)
[2022-02-21] MEDS: diphenhydrAMINE HCl INJ 50 MG/ML VIAL 25 MG IV PUSH (14:18)
[2022-02-21] MEDS: SCOPOLAMINE 1.5 MG PATCH TRANSDERM (14:19)
--- NOTE | 2022-02-21 14:27 | SUR.PHASEI ---
1426: Simple mask removed.
--- NOTE | 2022-02-21 15:02 | SUR.PHASEI ---
Patient stated, I don't think the pain medicine you are giving me is working so I don't want anymore.
--- NOTE | 2022-02-21 15:13 | OBPPTRN ---
Patient transferred to post room #282 via bed. Support person present. Oriented to unit, room, bed in low position, call light within reach.
[2022-02-21] MEDS: KETOROLAC 30 MG/ML VIAL (*BKC) IV PUSH (15:37)
[2022-02-21] MEDS: DEXTROSE 5%/LACTATED RINGERS 1,000 ML 125 ML IV CONT (15:37)
[2022-02-21] MEDS: HYDROcodone/acetaminophen (*CRX) 5-325 MG TABLET 1 TAB PO (18:50)
[2022-02-21] MEDS: SIMETHICONE 80 MG TAB.CHEW PO (19:30)
[2022-02-21] MEDS: IBUPROFEN 600 MG TABLET PO (22:45)
[2022-02-21] MEDS: HYDROcodone/acetaminophen (*CRX) 10-325 MG TABLET 1 TAB PO (22:45)
[2022-02-22 05:00] VITALS: BP 139/89; PULSE 97; RESP 16; TEMP 36.7
[2022-02-22 05:18] LABS: Basophils Absolute Auto 0.1 K/mm3 (0.0-0.1); Basophils Percent Auto 0.4 % (0.2-1.2); Eosinophils Percent Auto 0.2 % (0-4.4); Hematocrit 39.4 % (37.0-47.0); Hemoglobin 12.6 g/dL (12.0-15.0); Immature Granulocyte Absolute 0.05 K/mm3 (0.00-0.031); Immature Granulocyte Percent A 0.4 % (0-0.5); Lymphocytes Absolute Auto 1.59 K/mm3 (0.9-3.2); Lymphocytes Percent Auto 12.7 % (18.3-44.2); Mean Corpuscular Hemoglobin 29.5 pg (26-34); Mean Corpuscular Volume 92.3 fl (80-100); Mean Platelet Volume 9.7 fl (7.4-10.4); Monocytes Absolute Auto 1.2 K/mm3 (0.1-0.6); Monocytes Percent Auto 9.4 % (2.6-8.5); Neutrophils Absolute Auto 9.6 K/mm3 (1.3-6.7); Neutrophils Percent Auto 76.9 % (45.5-73.1); Platelet Count Result 242 k/mm3 (150-375); Red Blood Count 4.27 M/mm3 (4.2-5.4); Red Cell Distribution Width 13.5 % (11.5-14.5); White Blood Count 12.5 K/mm3 (4.5-10.0)
--- NOTE | 2022-02-22 06:53 | P.DS_ITS ---
DS: Admitting Diagnosis Discharge Date 12/22/2021 Admitting Diagnosis enlarged uterus/pelvic pain/ bleeding refractory medical therapy DS: Discharge Diagnosis Discharge Diagnosis (1) Uterine fibroid: Code(s): D25.9 - Leiomyoma of uterus, unspecified Status: Acute (2) Vaginal bleeding: Code(s): N93.9 - Abnormal uterine and vaginal bleeding, unspecified Status: Acute (3) Pelvic pain: Code(s): R10.2 - Pelvic and perineal pain Status: Acute (4) Enlarged uterus: Code(s): N85.2 - Hypertrophy of uterus Status: Acute DS: Summary Hospital Course Reason for hospitalization: patient was admitted for robotic total hysterectomy and bilateral salpingo- oophorectomy. Hospital Course: The patient underwent robotic total vaginal hysterectomy and bilateral salpingo-oophorectomy on 12/21/2021. Her hospital course was unremarkable. She was up, ambulating, voiding without difficulty, eating a regular diet, and generally without complaints. Time Spent with Patient Time attestation: Total time spent providing and/or coordinating discharge services: Exam GI: Inspection: normal to inspection and scar ( wounds were cleaned drain intact) DS: Data Data Completed and Pending Pending studies at discharge: Pending at discharge 02/21/22 13:06 Surgical [PTH] Routine Labs on day of discharge: Labs from last 24 hours 02/22/22 04:56 WBC 12.5 H RBC 4.27 Hgb 12.6 Hct 39.4 MCV 92.3 MCH 29.5 MCHC 32.0 RDW 13.5 Plt Count 242 MPV 9.7 Immature Gran % (Auto) 0.4 Neut % (Auto) 76.9 H Lymph % (Auto) 12.7 L [place] % (Auto) 9.4 H Eos % (Auto) 0.2 Baso % (Auto) 0.4 Lymph # (Auto) 1.59 [place] # (Auto) 1.2 H Eos # (Auto) 0.0 Baso # (Auto) 0.1 Abs Immat Gran (auto) 0.05 H Absolute Neuts (auto) 9.6 H Absolute Nucleated RBC 0.0 Nucleated RBC % 0.0 Discharge Plan Discharge Patient Disposition: Home, Self-Care Patient Instructions: Laparoscopic Hysterectomy (DC) Stand Alone Forms: General Discharge Instructions Follow-up/Referrals: Edwin Nguyen MD [Physician] - Discharge Medications: New hydrocodone-acetaminophen 5-325 mg tablet 1 tablet PO Q4H PRN (Reason: pain) Qty: 30 0RF Continued estradiol-norethindrone acet 0.5-0.1 mg tablet 1 tablet PO DAILY ondansetron 4 mg tablet,disintegrating 4 mg PO Q8H PRN (Reason: nausea and vomiting) Qty: 30 1RF triamcinolone acetonide 0.1 % cream 1 applic topical BID Qty: 30 0RF Rx Instructions: PATIENT USES NEEDED FOR SKIN RASH multivitamin Tablet 1 tablet PO DAILY escitalopram oxalate 5 mg tablet See Rx Instructions .ROUTE .COMPLEX Qty: 90 0RF Dose Instruction: Take 1 tablet by mouth once daily Rx Instructions: Take 1 tablet by mouth once daily pantoprazole 20 mg tablet,delayed release (DR/EC) 20 mg PO QAM Qty: 30 1RF
--- NOTE | 2022-02-22 06:56 | PM.GYNPNOP ---
PLASTIC SURGERY TECHNICIAN - A/P Postoperative Procedures: Procedures Operation Date: 02/21/22 11:30 Actual Procedure Side Surgeon p Robotic Assisted Total Vaginal Hysterectomy with Bilateral Salpingo-Oophorectomy Bilateral Edwin Cary MD Postoperative day: 1 Postoperative status: doing well Postoperative plan: routine post-op care, advance diet and discharge Time Spent With Patient Time: Total time spent is greater than 50% in coordination of care (as documented) at patient's floor/unit and/or counseling patient: Time with patient: less than 15 minutes PLASTIC SURGERY TECHNICIAN- PN:Subj Post-Op Subjective Date/time seen: 02/22/22 06:56 Subjective: patient reports feeling better, patient desires discharge and pain is well controlled Exam Const: General: cooperative, healthy appearing and comfortable Nutritional Appearance: well nourished Orientation/consciousness: oriented to person, oriented to place and oriented to time Resp: Effort & Inspection: normal respiratory effort GI: Inspection: normal to inspection and scar ( wounds are clean dry and) PLASTIC SURGERY TECHNICIAN - PN: Obj Data Vital Signs Vital Signs: Vital Signs - 24 hr 02/21/22 09:40 02/21/22 13:56 02/21/22 14:10 Temperature 98.5 F 97.0 F L 98.2 F Pulse Rate 96 114 H 96 Respiratory Rate 16 23 H 16 Blood Pressure 166/92 H 139/116 H 137/78 Pulse Oximetry 99 100 100 Oxygen Delivery Room Air Simple Face Mask Simple Face Mask Oxygen Flow Rate 6 6 02/21/22 14:25 02/21/22 14:40 02/21/22 14:55 Temperature 97.8 F 98.9 F Pulse Rate 96 94 99 Respiratory Rate 18 18 18 Blood Pressure 145/80 H 125/73 126/73 Pulse Oximetry 100 96 96 Oxygen Delivery Simple Face Mask Room Air Room Air Oxygen Flow Rate 6 02/21/22 15:20 02/21/22 15:20 02/21/22 19:30 Temperature 98.3 F 98.4 F Pulse Rate 98 94 Respiratory Rate 16 16 Blood Pressure 113/66 137/85 Pulse Oximetry 97 Oxygen Delivery Room Air Oxygen Flow Rate 02/21/22 22:45 02/22/22 05:00 Temperature 98.3 F 98.0 F Pulse Rate 90 97 Respiratory Rate 16 16 Blood Pressure 143/79 H 139/89 Pulse Oximetry Oxygen Delivery Oxygen Flow Rate Intake/Output Intake/Output: Intake & Output 02/19/22 02/20/22 02/21/22 02/22/22 23:59 23:59 23:59 23:59 Intake Total 650 500 Output Total 1770 1000 Balance -1120 -500 Meds/Results Medications: Active Medications Generic Name Dose Route Start Last Admin Trade Name Freq PRN Reason Stop Dose Admin Hydrocodone Bitart/Acetaminophen 1 tab 02/21/22 15:06 02/21/22 18:50 Hydrocodone/Acetaminophen (*Crx) 5-325 Mg Tablet PO 1 tab Q3H PRN Administration Pain Rated 5 or Less Hydrocodone Bitart/Acetaminophen 1 tab 02/21/22 15:06 02/21/22 22:45 Hydrocodone/Acetaminophen (*Crx) 10-325 Mg Tablet PO 1 tab Q3H PRN Administration Pain Rated 6 or Greater Docusate Sodium 100 mg 02/21/22 17:00 02/21/22 19:01 Docusate Sodium 100 Mg Capsule PO Not Given BID [facility] Enoxaparin Sodium 40 mg 02/22/22 09:00 Enoxaparin 40 Mg/0.4 Ml Syringe SUB-Q DAILY [facility] Ibuprofen 600 mg 02/21/22 15:06 02/21/22 22:45 Ibuprofen 600 Mg Tablet PO 600 mg Q6H PRN Administration Cramping Ketorolac Tromethamine 30 mg 02/21/22 15:06 02/21/22 15:37 Ketorolac 30 Mg/Ml Vial (*Bkc) IV PUSH 02/26/22 15:05 30 mg Q6H PRN Administration Pain Rated 4-6 Naloxone HCl 0.1 mg 02/21/22 15:06 Naloxone Hcl 0.4 Mg/Ml Vial IV PUSH Q2M PRN Respiratory rate less than 10 Ondansetron HCl 4 mg 02/21/22 15:06 Ondansetron Inj 4 Mg/2 Ml Vial IV PUSH Q6H PRN Nausea And Vomiting Simethicone 80 mg 02/21/22 15:06 02/21/22 19:30 Simethicone 80 Mg Tab.Chew PO 80 mg Q2H PRN Administration Gas Labs CBC & Chem 7: 02/22/22 04:56 Labs: Laboratory Results - last 24 hr 02/22/22 04:56 WBC 12.5 H RBC 4.27 Hgb 12.6 Hct 39.4 MCV 92.3 MCH 29.5 MCHC 32.0 RDW 13.5 Plt Count 242 MPV 9.
--- NOTE | 2022-02-22 07:48 | P.PNAN_ITS ---
Anes - Prog Note Post-Op Date/Time: 02/22/22 07:48 Cardiovascular status: normal Respiratory status: normal Airway patency: baseline Mental status: baseline Post-Op hydration status: normal Vital Signs: Last Vital Signs Temp 36.7 C 02/22/22 05:00 Pulse 97 02/22/22 05:00 Resp 16 02/22/22 05:00 BP 139/89 02/22/22 05:00 Pulse Ox 97 02/21/22 15:20 O2 Del Method Room Air 02/21/22 15:20 O2 Flow Rate 6 02/21/22 14:25 Pain Score (VAS): 07/18 I/O: Intake & Output 02/21/22 02/21/22 02/22/22 15:59 23:59 07:59 Intake Total 650 0 500 Output Total 170 1600 1000 Balance 480 -1600 -500 Laboratory Tests 02/22/22 04:56 02/22/22 04:56 WBC 12.5 H RBC 4.27 Hgb 12.6 Hct 39.4 MCV 92.3 MCH 29.5 MCHC 32.0 RDW 13.5 Plt Count 242 MPV 9.7 Immature Gran % (Auto) 0.4 Neut % (Auto) 76.9 H Lymph % (Auto) 12.7 L [place] % (Auto) 9.4 H Eos % (Auto) 0.2 Baso % (Auto) 0.4 Lymph # (Auto) 1.59 [place] # (Auto) 1.2 H Eos # (Auto) 0.0 Baso # (Auto) 0.1 Abs Immat Gran (auto) 0.05 H Absolute Neuts (auto) 9.6 H Absolute Nucleated RBC 0.0 Nucleated RBC % 0.0 Post-procedural complaints: none Patient Feedback: Patient satisfied with anesthetic care.
[2022-02-22 08:00] VITALS: BP 132/73; PULSE 82; PULSE 97; RESP 16; TEMP 37.1; O2SAT 97; O2SAT 99
[2022-02-22] MEDS: IBUPROFEN 600 MG TABLET PO (09:47)
[2022-02-22] MEDS: SIMETHICONE 80 MG TAB.CHEW PO (09:48)
[2022-02-22] MEDS: HYDROcodone/acetaminophen (*CRX) 10-325 MG TABLET 1 TAB PO (09:48)
[2022-02-22] MEDS: DOCUSATE SODIUM 100 MG CAPSULE PO (09:48)
[2022-02-22] MEDS: ENOXAPARIN 40 MG/0.4 ML SYRINGE SUB-Q (09:48)
== END 2022-02-22 10:15 | disposition home or self-care (01) ==
LOC: ANHSURGERY 09:26 → ANHOB2 15:31
PROVIDERS: PCP Family Medicine; Visit Provider Obstetrics & Gynecology
PROC: (CPT 58552; principal; 2022-02-21 11:30)
DX: R10.2 Pelvic and perineal pain (principal); N93.9 Abnormal uterine and vaginal bleeding, unspecified; D25.9 Leiomyoma of uterus, unspecified; N83.292 Other ovarian cyst, left side; N83.291 Other ovarian cyst, right side; F41.8 Other specified anxiety disorders; K21.9 Gastro-esophageal reflux disease without esophagitis; E78.2 Mixed hyperlipidemia; Z87.891 Personal history of nicotine dependence; F12.90 Cannabis use, unspecified, uncomplicated
CPT/HCPCS: 58552; S2900; 36415; 85025; 86850; 86900; 86901; 88307; 93005; 99199; A9270; J0330; J0360; J0690; J1100; J1200; J1650; J1885; J2250; J2405; J2704; J2710; J3010; J7030; J7120; J7121

== ENCOUNTER → 2022-04-21 09:59 | Outpatient (CLI) | payer OTHER, SELFPAY ==
--- NOTE | ~2022-04-21 | XR_ITS ---
XR chest 2V DATE: 04/21/2022 10:08 INDICATION: Shortness of breath. Hypertension. TECHNIQUE: 2 views COMPARISON: 11/26/2020 2 view chest FINDINGS: Normal heart size. No hilar or mediastinal enlargement. No pulmonary infiltrate or consolid ation, pleural effusion or pulmonary vascular congestion or pneumothorax. Included skeletal structures are unremarkable IMPRESSION: No active cardiopulmonary disease or significant change since 11/26/2020 Reviewed, dictated and finalized at location A. TH/SAFETY JOB TITLES IMPRESSION: No active cardiopulmonary disease or significant change since 2020
== END ==
PROVIDERS: PCP Family Medicine; Visit Provider Family Medicine
DX: R06.02 Shortness of breath (principal); I10 Essential (primary) hypertension
CPT/HCPCS: 71046